=== PATIENT | female | born 1950 | race Caucasian/White ===

== ENCOUNTER → 2018-02-09 | Outpatient (CLI) | payer BC | END | disposition home or self-care (01) | LOC: LAB SHORT 13:33 → PLD 13:33 | DX: D22.5 Melanocytic nevi of trunk (principal); D22.72 Melanocytic nevi of left lower limb, including hip | CPT/HCPCS: 88305 ==

== ENCOUNTER → 2019-02-09 | Outpatient (CLI) | payer BC | LOC: PLD 13:53 → LAB SHORT 13:53 | DX: D22.5 Melanocytic nevi of trunk (principal) | CPT/HCPCS: 88305 ==

== ENCOUNTER → 2019-02-17 | Outpatient (CLI) | payer BC | END | disposition home or self-care (01) | LOC: LAB SHORT 13:39 → PLD 13:39 | DX: D22.5 Melanocytic nevi of trunk (principal) | CPT/HCPCS: 88305 ==

== ENCOUNTER 2019-07-29 07:54 | Day surgery (SDC) | payer BC ==
[~2019-07-29] VITALS: Ht 264.2 cm; Wt 95.8 kg
[~2019-07-29 07:54] MED LIST: Dyazide 37.5-21 EACH PO; EUTHYROX25 MCG; Metformin HCl500 MG PO; ROSU5 PO
--- NOTE | 2019-07-29 08:44 | NUR ---
07/29/19 0844 Diane Henriquez 1ST IV ATTEMPT INFILTRATED STARTED IN RH, STARTED BY MADELEINE CAROLINA 2ND IV ATTEMPT IN RFA SUCCESSFUL, STARTED BY HARSHAD WHITE
== END 2019-07-29 10:07 | disposition home or self-care (01) ==
LOC: ORSCSDS 07:54
PROVIDERS: Internal Medicine Gastroenterology
PROC: 0DJD8ZZ Inspection of Lower Intestinal Tract, Via Natural or Artificial Opening Endoscopic (ICD-10-PCS; principal; 2019-07-29 09:15)
DX: Z12.11 Encounter for screening for malignant neoplasm of colon (principal); K57.30 Diverticulosis of large intestine without perforation or abscess without bleeding; K64.8 Other hemorrhoids; K64.4 Residual hemorrhoidal skin tags; I10 Essential (primary) hypertension; E78.5 Hyperlipidemia, unspecified; E66.9 Obesity, unspecified; Z68.37 Body mass index [BMI] 37.0-37.9, adult; Z79.899 Other long term (current) drug therapy
CPT/HCPCS: 82947; J2704; J7120

== ENCOUNTER → 2020-07-24 | Outpatient (CLI) | payer BC | LOC: PLD 10:30 → LAB SHORT 10:30 | DX: D22.5 Melanocytic nevi of trunk (principal) | CPT/HCPCS: 88305 ==

== ENCOUNTER → 2022-06-19 | Outpatient (CLI) | payer BC ==
[2022-06-20 15:10] LABS: HPV 16 Negative (Negative); HPV 18 Negative (Negative); HPV OTHER HR TYPES Negative (Negative)
== END | disposition home or self-care (01) ==
LOC: LAB 09:24 → LAB SHORT 09:24
PROVIDERS: Family Medicine
DX: Z01.419 Encounter for gynecological examination (general) (routine) without abnormal findings (principal)
CPT/HCPCS: 87624; G0123

== ENCOUNTER → 2023-03-07 | Outpatient (CLI) | payer BC | LOC: LAB SHORT 16:58 | DX: R30.0 Dysuria (principal) | CPT/HCPCS: 87077; 87086; 87147; 87186 ==

== ENCOUNTER → 2023-05-26 | Outpatient (CLI) | payer BC | END | disposition home or self-care (01) | LOC: LAB SHORT 17:10 → LAB 17:10 | DX: R30.0 Dysuria (principal) | CPT/HCPCS: 87077; 87086; 87186 ==